=== PATIENT | male | born 1970 | race Caucasian/White ===

== ENCOUNTER → 2017-12-02 | Day surgery (SDC) | payer OTHER ==
--- NOTE | 2017-11-26 13:39 | PAT Medication Instructions ---
Service Date Nov 26, 2017. Current Home Medication List Acetaminophen (Tylenol), 325 MG PO Q6H PRN for Pain Atorvastatin (Lipitor), 40 MG PO QPM Desmopressin Acetate (Desmopressin Acetate), 0.4 MG PO Q12H Docusate Sodium (Stool Softener), 100 MG PO BID PRN for Constipation Fexofenadine Hcl (Gloria Allergy), 180 MG PO DAILY PRN for allergies Guaifenesin (Guaifenesin), 1 ML PO BID PRN for Cough Levothyroxine Sodium (Levothyroxine Sodium), 75 MCG PO QAM Loperamide HCl ([facility] Loperamide HCl), 1 TBS PO TID PRN for Diarrhea Multivitamin (Multivitamin), 1 TAB PO DAILY Ondansetron Hcl (Zofran), 4 MG PO BID PRN for Nausea Oxycodone/Acetaminophen 5MG/325MG (Percocet 5MG/325MG), 1 TABLET PO TID PRN for Pain Pantoprazole Sodium (Bulk) (Pantoprazole Sodium), 1 DOSE PO QAM Polyethylene Glycol 3350 (Miralax), 1 PKT PO BID PRN for Constipation Senna/Docusate Sod (Senokot S), 2 TAB PO BID Venlafaxine HCl (Venlafaxine HCl), 50 MG PO QAM [Amdrogel], 2 PKT TOP HS Medication Instructions For Your Scheduled Surgery - Hold the following medications 24 hours prior to surgery: [Amdrogel], 2 PKT TOP HS - Hold the following medications the morning of surgery: Docusate Sodium (Stool Softener), 100 MG PO BID PRN for Constipation Fexofenadine Hcl (Gloria Allergy), 180 MG PO DAILY PRN for allergies Guaifenesin (Guaifenesin), 1 ML PO BID PRN for Cough Loperamide HCl ([facility] Loperamide HCl), 1 TBS PO TID PRN for Diarrhea Multivitamin (Multivitamin), 1 TAB PO DAILY Polyethylene Glycol 3350 (Miralax), 1 PKT PO BID PRN for Constipation Senna/Docusate Sod (Senokot S), 2 TAB PO BID - Take the following medications the morning of surgery with a sip of water: Venlafaxine HCl (Venlafaxine HCl), 50 MG PO QAM Pantoprazole Sodium (Bulk) (Pantoprazole Sodium), 1 DOSE PO QAM Ondansetron Hcl (Zofran), 4 MG PO BID PRN for Nausea (if needed) Oxycodone/Acetaminophen 5MG/325MG (Percocet 5MG/325MG), 1 TABLET PO TID PRN for Pain (okay to take up to 4 hours prior to surgery if needed) Acetaminophen (Tylenol), 325 MG PO Q6H PRN for Pain (okay to take up to 4 hours prior to surgery if needed) Levothyroxine Sodium (Levothyroxine Sodium), 75 MCG PO QAM Desmopressin Acetate (Desmopressin Acetate), 0.4 MG PO Q12H If you have any questions please call us at [phone] or [phone] or [phone]
[~2017-12-02] VITALS: Ht 157.5 cm; Wt 75.0 kg
[~2017-12-02] MED LIST: ACET-1311 PO; ASPI-232 PO; DESM0.2T17 PO; DOCU100C PO; EFF50 PO; FEXO1TAB49 PO; GUAI100S16 PO; LEVO75TA5 PO; LIDOCAINE HCL 2% 2 ML VIAL (20MG/ML) ONE; LOPE1SUS PO; LPT/40 PO; MULT-506 PO; ONDA4TAB46 PO; OXYC-57 PO; PANT1POW PO; POLY335025 PO; PROPOFOL IV EMULSION 10 MG/ML 20 ML VIAL IV ONE; SENN-65 PO; SODIUM CHLORIDE 0.9% 500ML 500 ML IV ONE; [UNRECOGNIZED DRUG - OTHER] TOP
[2017-12-02 08:58] VITALS: Ht 157.5 cm; Wt 75.0 kg
--- NOTE | 2017-12-02 09:00 | Endo History and Physical ---
History & Physical Date of Service: Dec 02, 2017. Chief Complaint: Referring Physician: History of Present Illness 47 yo with hx of panhypopituitarism, s/p stroke, who presents for f/u EGD for long segment C6-M6 Anthony's esophagus. Past Medical History Cancer, Kidney Disease, CVA/TIA Past Surgical History Hx Cardiac Surgery: No Hx Internal Defibrillator: No Hx Pacemaker: No Hx Abdominal Surgery: Yes (PEG PLACEMENT/REMOVAL) Hx Post-Op Nausea and Vomiting: No Hx Cancer Surgery: Yes (CRANIOTOMY) Hx Thoracic Surgery: No Hx Orthopedic: No Hx Urinary Tract Surgery: No Family History None Social History Smoking Status: Never Smoker Hx Substance Use: No Hx Alcohol Use: No Allergies Coded Allergies: No Known Allergies (Verified , 12/02/17) Current Medications Reported Home Medications Medications Dose Route/Sig Max Daily Dose Days Date Category Dose Instructions Aspir-81 (Aspirin) 81 Mg Tab 1 Tab PO DAILY 30 12/02/17 Reported Senokot S (Senna/Docusate Sodium) 1 Tab Tab 2 Tab PO BID 11/26/17 Reported Venlafaxine HCl 50 Mg Tab 50 Mg PO QAM 11/26/17 Reported Multivitamin (Multivitamins) Tab 1 Tab PO DAILY 11/26/17 Reported Tylenol (Acetaminophen) 325 Mg Tab 325 Mg PO Q6H PRN 11/26/17 Reported Zofran (Ondansetron HCl) 4 Mg Tab 4 Mg PO BID PRN 11/26/17 Reported Guaifenesin 100 Mg/5 Ml Syp 1 Ml PO BID PRN 11/26/17 Reported Pantoprazole Sodium (Pantoprazole Sodium (Bulk)) 1 Pow Pow 1 Dose PO QAM 11/26/17 Reported Percocet 5MG/325MG (Oxycodone/Acetaminophen) Tab 1 Tablet PO TID PRN 11/26/17 Reported PAIN [Amdrogel] 2 Pkt TOP HS 11/26/17 Reported APPLY TO SHOULDER AND UPPER ARMS ALLOW TO DRY THEN COVER WITH CLOTHING Levothyroxine Sodium 75 Mcg Tab 75 Mcg PO QAM 11/26/17 Reported Lipitor (Atorvastatin) 40 Mg Tab 40 Mg PO QPM 11/26/17 Reported Desmopressin Acetate 0.2 Mg Tab 0.4 Mg PO Q12H 11/26/17 Reported Gloria Allergy (Fexofenadine Hcl) 180 Mg Tab 180 Mg PO DAILY PRN 08/14/16 Reported [facility] Loperamide HCl (Loperamide HCl) 1 Mg/7.5 Ml Rosemarie 1 Tbs PO TID PRN 07/12/16 Reported 1 TABLESPOON WITH FEEDS THREE TIMES A DAY NEEDED FOR DIARRHEA - Stool Softener (Docusate Sodium) 100 Mg Cap 100 Mg PO BID PRN 07/12/16 Reported Miralax (Polyethylene Glycol 3350) 1 Pow Pow 1 Pkt PO BID PRN 03/27/16 Reported Vital Signs Weight (Kilograms): 75 Height (Feet): 5 Height (Inches): 2 Physical Exam General Appearance: WD/WN, no apparent distress Respiratory/Chest: Respiratory effort: no dyspnea Auscultation: breath sounds normal, CTA except as noted, no wheezing, no rales/crackles Cardiovascular: Apical Impulse: not displaced Heart Auscultation: RRR, normal S1 Abdomen: Inspection & Palpation: soft, non-distended, no tenderness, guarding & rebound Assessment and Plan 47 yo presenting for EGD for surveillance of Long segment Anthony's
[2017-12-02 09:08] VITALS: TEMP 37.1
--- NOTE | 2017-12-02 09:42 | GI REPORT ---
Procedure Date: 12/02/2017 9:22 AM Procedure: Upper GI endoscopy Indications: Follow-up of Anthony's esophagus Medicines: Monitored Anesthesia Care Complications: No immediate complications. Estimated blood loss: None. Estimated Blood Loss: Estimated blood loss: none. Procedure: Pre-Anesthesia Assessment: - Pre-Anesthesia Assessment: - Prior to the procedure, a History and Physical was performed, and patient medications, allergies and sensitivities were reviewed. The patient's tolerance of previous anesthesia was reviewed. Please see [email or web address] for complete details. - The risks and benefits of the procedure and the sedation options and risks were discussed with the patient. All questions were answered and informed consent was obtained. - Patient identification and proposed procedure were verified prior to the procedure by the physician and the nurse. The procedure was verified in the pre-procedure area in the procedure room. After obtaining informed consent, the endoscope was passed carefully and meticuously under direct vision and only advanced when the lumen was clearly identified, C02 insuflation was utilized throughout the entirity of the procedure. Throughout the procedure, the patient's blood pressure, pulse, and oxygen saturations were monitored continuously. After obtaining informed consent, the endoscope was passed under direct vision. Throughout the procedure, the patient's blood pressure, pulse, and oxygen saturations were monitored continuously. The scope was introduced through the mouth, and advanced to the second part of duodenum. The upper GI endoscopy was accomplished without difficulty. The patient tolerated the procedure well. Findings: A hiatal hernia was present. The esophagus and gastroesophageal junction were examined with white light and narrow band imaging (NBI) from a forward view and retroflexed position. There were esophageal mucosal changes classified as Anthony's stage C8-M8 per [place] criteria. These changes involved the mucosa extending to the Z-line (25 cm from the incisors). Mucosa was biopsied with a cold forceps for histology in 4 quadrants at intervals of 2 cm at 25, 27, 29, 31 and 33 cm from the incisors. A total of 5 specimen bottles were sent to pathology. The entire examined stomach was normal. The examined duodenum was normal. Impression: - Hiatal hernia. - Esophageal mucosal changes classified as Anthony's stage C8-M8 per [place] criteria. Biopsied. - Normal stomach. - Normal examined duodenum. Recommendation: - Await pathology results. - Discharge patient to home (with escort). - Return to referring physician as previously scheduled. - Repeat upper endoscopy for surveillance based on pathology results. - Continue present medications. Constantine Benitez MD 12/02/2017 9:42:32 AM This report has been signed electronically. Note Initiated On: 12/02/2017 9:22 AM I attest to the content of the Intraoperative Record and orders documented therein, exceptions below
--- NOTE | 2017-12-02 09:44 | Discharge Instructions ---
Endoscopy Patient Instructions Date / Procedure(s) Performed Dec 02, 2017. EGD Allergy Information Coded Allergies: No Known Allergies (Verified , 12/02/17) Discharge Date / Findings Dec 02, 2017. Long Segment Anthony's esophagus without high risk features, biopsied and will be contacted with results Medication Instructions Stopped Medication(s): DIDN'T TAKE ANY MEDICATION Provider Instructions Activity Restrictions - No exercising or heavy lifting for 24 hours. - Do not drink alcohol the day of the procedure. - Do not drive a car or operate machinery until the day after the procedure. - Do not make any important decisions or sign important papers in 24 hours after the procedure. Following Day: - Return to full activity which may include returning to work/school. Diet Start your diet with liquids and light foods (jello, soup, juice, toast). Then eat your usual diet if not nauseated. Treatment For Common After Affects For mild abdominal pain, bloating, or excessive gas: - Rest - Eat lightly - Lie on right side Follow-Up Information Follow-up with DR. SORENSON as scheduled Anesthesia Information What You Should Know You have had a procedure that required some medicine to reduce anxiety and discomfort. This treatment is called moderate sedation. After receiving the treatment, you may be sleepy, but you will be able to breathe on your own. The effects of the treatment may last for several hours. Follow these instructions along with Activity/Diet recommendations noted above: * Do NOT do anything where dizziness or clumsiness would be dangerous. * Rest quietly at home today, then you can be up and about tomorrow. * Have a responsible person stay with you the rest of today. * You may have had an I.V. today. If so, you may take the dressing off later today. Recommendations Call your doctor if: * Trouble breathing * Continuous vomiting for more than 24 hours * Temperature above 101 degrees * Severe abdominal pain or bloating * Pain not relieved by pain medicine ordered * There is increased drainage or redness from any incision * A large amount of rectal bleeding greater than 2-3 tablespoons. (If you had a polyp/s removed or have hemorrhoids, a small amount of blood - from the rectum is to be expected.) * You have any unanswered questions or concerns. IN THE EVENT OF A SERIOUS EMERGENCY, GO TO THE NEAREST EMERGENCY ROOM Your discharge instructions were prepared by provider Constantine Benitez. Patient Instructions Signature Page Oscar Mcgowan Patient (or Guardian) Signature/Date: I have read and understand the instructions given to me by my caregivers. Caregiver/RN/Doctor Signature/Date: The above-named patient and/or guardian has received patient instructions on this date. + Original Patient Signature Page (only) stays with chart. Please make copy for patient.
--- NOTE | 2017-12-02 10:13 | Anesthesiology Progress Note ---
Anesthesia Post Op Note Date & Time Dec 02, 2017 at 10:13 Vital Signs Pain Intensity: 0 Vital Signs Past 12 Hours Date Time Temp Pulse Resp B/P (MAP) Pulse Ox O2 Delivery O2 Flow Rate FiO2 12/02/17 10:01 61 18 137/84 (101) 97 Room Air 12/02/17 09:46 63 18 130/79 (96) 100 Room Air 12/02/17 09:08 37.1 69 20 136/89 (105) 97 Room Air Notes Mental Status: alert / awake / arousable, participated in evaluation Pt Amnestic to Procedure: Yes Nausea / Vomiting: adequately controlled Pain: adequately controlled Airway Patency, RR, SpO2: stable & adequate BP & HR: stable & adequate Hydration State: stable & adequate Anesthetic Complications: no major complications apparent
[2017-12-02 10:16] VITALS: BP 133/81; PULSE 61; O2SAT 97
== END | disposition home or self-care (01) ==
LOC: C.GI 08:39
PROVIDERS: ATTEND Internal Medicine
DX: K22.70 Barrett's esophagus without dysplasia (principal); K44.9 Diaphragmatic hernia without obstruction or gangrene; E23.0 Hypopituitarism; N28.9 Disorder of kidney and ureter, unspecified; Z86.73 Personal history of transient ischemic attack (TIA), and cerebral infarction without residual deficits; Z79.82 Long term (current) use of aspirin; Z79.899 Other long term (current) drug therapy